=== PATIENT | female | born 1970 | race Two or more races ===

== ENCOUNTER 2019-12-14 22:32 | Emergency (ER) | payer OTHER, SELFPAY ==
[~2019-12-14] VITALS: Ht 149.9 cm; Wt 54.4 kg
--- NOTE | 2019-12-14 23:14 | NUR ---
FIRST CONTACT WITH PT. PT STANDING AT BEDSIDE. NAD NOTED. PT REPORTS INTERMITTENT CRAMPING PELVIC PAIN X TWO DAYS, WORSENING TODAY. DENIES N/V/DYSURIA/VAGINAL DC OR BLEEDING. LMP 7 MONTHS AGO, SHE IS SEXUALLY ACTIVE BUT DENIES , "I THINK I'M STARTING MENOPAUSE". . LBM: TODAY, NORMAL PER PT. UA COLLECTED AND SENT TO LAB.
[2019-12-14 23:24] LABS: MICROSCOPIC NOT IND
[2019-12-14 23:30] LABS: BASOPHILS # (AUTO) 0.09 x10^3/uL (0-0.1); BASOPHILS % (AUTO) 1 % (0-1); EOSINOPHILS # (AUTO) 0.04 x10^3/uL (0-0.4); EOSINOPHILS % (AUTO) 0 % (1-7); LYMPHOCYTES # (AUTO) 0.93 x10^3/uL (1-3.4); LYMPHOCYTES % (AUTO) 8 % (22-44); MD NO; MEAN CORPUSCULAR HEMOGLOBIN 32.5 pg (27.0-34.8); MEAN CORPUSCULAR HGB CONC 34.6 g/dL (32.4-35.8); MEAN CORPUSCULAR VOLUME 93.8 fL (80-100); MEAN PLATELET VOLUME 7.7 fL (7.4-10.4); MONOCYTES # (AUTO) 1.12 x10^3/uL (0.2-0.8); MONOCYTES % (AUTO) 10 % (2-9); NEUTROPHILS # (AUTO) 9.63 x10^3/uL (1.8-6.8); NEUTROPHILS % (AUTO) 82 % (42-75); PLATELET COUNT 302 x10^3/uL (130-400); RED BLOOD COUNT 4.09 x10^6/uL (3.82-5.3)
[2019-12-14 23:42] LABS: ALANINE AMINOTRANSFERASE 41 U/L (12-78); ALBUMIN 3.3 g/dL (3.4-5.0); ANION GAP 4 mmol/L (5-15); CALCIUM 8.5 mg/dL (8.5-10.1); CHLORIDE 110 mmol/L (98-107); CREATININE 0.79 mg/dL (0.55-1.02)
[2019-12-14 23:47] LABS: ALKALINE PHOSPHATASE 116 U/L (45-117); BILIRUBIN,TOTAL 0.7 mg/dL (0.2-1.0); TOTAL PROTEIN 7.4 g/dL (6.4-8.2)
--- NOTE | 2019-12-15 00:28 | NUR ---
PT IN US
--- NOTE | 2019-12-15 01:03 | NUR ---
report of pt from pastora delgado and assuming care of pt at this time.
[2019-12-15] MEDS ORDERED: HYDROcodone/APAP 5/325 TABLET PO ONE (02:00)
[2019-12-15] MEDS ORDERED: HYDROcodone/APAP 5/325 TABLET ONE ×2 (02:08→02:20)
--- NOTE | 2019-12-15 02:11 | NUR ---
TASK RN: PT MEDICATED PER EMAR FOR 12/07 PAIN
--- NOTE | 2019-12-15 03:04 | NUR ---
pt d/c with d/c summary and f/u instructions with obgyn. pt questions answered. pt ambulates to registration desk with steady gait for d/c home. pt denies any other needs pertaining to this visit. vss and updated in emr prior to d/c
[2019-12-15 03:06] VITALS: BP 106/72
== END 2019-12-15 03:11 ==
LOC: ED 23:55
DX: N83.292 Other ovarian cyst, left side (principal)
CPT/HCPCS: 36415; 76830; 80053; 81003; 83690; 84703; 85025; 99284

== ENCOUNTER 2020-06-25 15:20 | Outpatient (CLI) | payer OTHER | END 2020-06-25 23:59 | disposition home or self-care (01) | LOC: CFH 15:20 | PROVIDERS: ATTEND Obstetrics & Gynecology | DX: Z12.31 Encounter for screening mammogram for malignant neoplasm of breast (principal) | CPT/HCPCS: 77063; 77067 ==